=== PATIENT | male | born 1965 | race Two or more races ===

== ENCOUNTER 2025-06-24 07:18 | Outpatient (CLI) | payer OTHER | END 2025-06-24 07:19 | disposition home or self-care (01) | LOC: NUCLEAR 07:18 | PROVIDERS: ATTEND Internal Medicine Cardiovascular Disease | DX: I11.9 Hypertensive heart disease without heart failure (principal) ==

== ENCOUNTER 2025-06-24 09:40 | Outpatient (CLI) | payer OTHER | END 2025-06-24 09:43 | disposition home or self-care (01) | LOC: RAD 09:40 | PROVIDERS: ATTEND Internal Medicine Cardiovascular Disease | DX: I10 Essential (primary) hypertension (principal) ==

== ENCOUNTER 2025-07-07 08:23 | Outpatient (CLI) | payer OTHER | END 2025-07-07 08:25 | disposition home or self-care (01) | LOC: SONOGRAMA 08:23 | PROVIDERS: ATTEND Internal Medicine Cardiovascular Disease | DX: K76.0 Fatty (change of) liver, not elsewhere classified (principal); I11.9 Hypertensive heart disease without heart failure ==